=== PATIENT | female | born 2000 | race Caucasian/White ===

== ENCOUNTER 2019-03-06 21:14 | Emergency (ER) | payer MEDICAID ==
[~2019-03-06] VITALS: Ht 154.9 cm; Wt 60.6 kg
[2019-03-06] MEDS ORDERED: PRENTAB45 PO (21:33)
[2019-03-06] MEDS ORDERED: KEPP1TAB PO (21:33)
[2019-03-06] MEDS ORDERED: VITA-112 PO (21:33)
[2019-03-06] MEDS ORDERED: ACETAMINOPHEN 325 MG TAB PO ONE (22:45)
[2019-03-06] MEDS ORDERED: hydrOXYzine 25 MG TAB PO ONE (23:15)
[2019-03-07 00:33] VITALS: BP 96/50
--- NOTE | 2019-03-07 08:34 | REP ---
Clinical: Trauma. Technique: AP, lateral, bilateral oblique views of the right hand. Findings: No acute fracture or dislocation. Skeletal structures, joint spaces, and surrounding soft tissues appear normal. No subcutaneous emphysema or radiodense foreign body. Impression: No acute fracture or dislocation. Electronically Signed by Doug Willis MD 03/07/2019 08:25 A
== END 2019-03-07 00:55 | disposition home or self-care (01) ==
LOC: M ED 21:14 → EDBD 21:14 → M ED 03-07 00:55
DX: S60.221A Contusion of right hand, initial encounter (principal); S60.051A Contusion of right little finger without damage to nail, initial encounter; W22.8XXA Striking against or struck by other objects, initial encounter; Y92.480 Sidewalk as the place of occurrence of the external cause; Y93.89 Activity, other specified; Y99.9 Unspecified external cause status; Z3A.16 16 weeks gestation of pregnancy; Z79.899 Other long term (current) drug therapy

== ENCOUNTER 2019-03-07 04:49 | Inpatient (IN) | payer MEDICAID ==
[~2019-03-07] VITALS: Ht 154.9 cm; Wt 59.0 kg
[~2019-03-07 04:49] MED LIST: KEPP1TAB PO; PRENTAB45 PO; VITA-112 PO
[2019-03-07 07:46] LABS: HEMATOCRIT 31.3 % (36.0-47.0); HEMOGLOBIN 10.4 g/dl (12.0-15.5); MEAN CORPUSCULAR HEMOGLOBIN 29.1 pg (27.0-33.0); MEAN CORPUSCULAR HGB CONC 33.2 g/dl (32.0-36.5); MEAN CORPUSCULAR VOLUME 87.4 fl (80.0-96.0); PLATELET COUNT, AUTOMATED 184 10^3/uL (150-450); RED BLOOD COUNT 3.58 10^6/uL (4.00-5.40); WHITE BLOOD COUNT 7.8 10^3/uL (4.0-10.0)
[2019-03-07 08:08] LABS: HCG, SERUM QUALITATIVE POSITIVE (NEGATIVE)
[2019-03-07 08:18] LABS: ACETAMINOPHEN LEVEL 2.1 UG/ML (10.0-30.0); ALBUMIN 2.8 GM/DL (3.2-5.2); ALT/SGPT 30 U/L (12-78); BILIRUBIN,DIRECT < 0.1 MG/DL (0.0-0.2); BILIRUBIN,TOTAL 0.2 MG/DL (0.2-1.0); BLOOD UREA NITROGEN 8 MG/DL (7-18); CALCIUM LEVEL 7.9 MG/DL (8.5-10.1); CARBON DIOXIDE LEVEL 27 MEQ/L (21-32); CHLORIDE LEVEL 108 MEQ/L (98-107); CREATININE FOR GFR 0.49 MG/DL (0.55-1.30); ETHYL ALCOHOL (ETHANOL) < 0.003 % (0.000-0.010); GLOMERULAR FILTRATION RATE > 60.0 (>60); GLUCOSE, FASTING 85 MG/DL (70-100); SALICYLATE LEVEL < 1.7 MG/DL (5.0-30.0); SODIUM LEVEL 141 MEQ/L (136-145); TOTAL PROTEIN 5.8 GM/DL (6.4-8.2)
[2019-03-07 10:22] LABS: AMPHETAMINES LEVEL URINE NEGATIVE (NEGATIVE); BARBITURATES URINE NEGATIVE (NEGATIVE); BENZODIAZEPINES URINE NEGATIVE (NEGATIVE); CANNABINOIDS URINE NEGATIVE (NEGATIVE); COCAINE METABOLITE URINE NEGATIVE (NEGATIVE); METHADONE URINE NEGATIVE (NEGATIVE); OPIATES URINE NEGATIVE (NEGATIVE); PHENCYCLIDINE URINE NEGATIVE (NEGATIVE)
[2019-03-07] MEDS ORDERED: MAALOX 30 ML SUSP *UDC PO PRN (13:15)
[2019-03-07] MEDS ORDERED: ACETAMINOPHEN TAB 650MG DOSE (2X325MG) PO PRN (13:15)
[2019-03-07] MEDS ORDERED: MOM 30ML SUSPENSION UDC PO PRN (13:15)
[2019-03-07] MEDS ORDERED: traZODone 50 MG TAB PO PRN (13:15)
--- NOTE | 2019-03-07 14:27 | CR.PDOC ---
General Date of Consultation: Mar 07, 2019 Referring Provider: TEZ ROBERSON DO Primary Care Physician: TEZ ROBERSON DO Attending Physician: TEZ ROBERSON DO Consultation REASON FOR CONSULTATION/CHIEF COMPLAINT: Medical evaluation and medical H&P. HISTORY OF PRESENT ILLNESS: [19 years old female who is 16 weeks , recently moved from [facility] with her boyfriend had recently been seen in the ED and offered placement in a jail was then refused. She came back with chief complaints of suicidal ideation and superficial laceration to left hand Sera is being admitted to [facility] for constant observation secondary to suicidal ideation. Patient denies any medical complaints. ALLERGIES: Please see below. HOME MEDICATIONS: Please see below. PAST MEDICAL HISTORY: 1. 16 weeks . No other past medical history. PAST SURGICAL HISTORY: 1. None FAMILY HISTORY: History of psychiatric problems in the family Father: alcoholism Mother: hx of heart diseas Siblings: Children: Hereditary Diseases: Unexpected deaths due to medical reasons: SOCIAL HISTORY: Marital status and/or living arrangements: Lives with boyfriend and she is homeless Children: Employment: Tobacco use: ETOH: Denies Illicit drug use: Denies IV drug use: Denies Other relevant social factors: Recently moved from [place] with her boyfriend REVIEW OF SYSTEMS: CONSTITUTIONAL: No fever, weight loss. HEENT: No headache. eyes lacrimation or nose congestion-. CARDIOVASCULAR: Chest pain, palpitation. RESPIRATORY: For shortness of breath. GENITOURINARY: No urinary. MUSCULOSKELETAL: No muscle aches. GASTROINTESTINAL:. No nausea, vomiting or diarrhea. SKIN:. No rash. NEUROLOGICAL:. No weakness or gait disturbance. PSYCHIATRIC:, Suicidal. ENDOCRINE:, No diabetes. HEMATOLOGIC/LYMPHATIC:, No swelling. ALLERGIC/IMMUNOLOGIC: . PHYSICAL EXAMINATION: VITAL SIGNS: Please see below. GENERAL APPEARANCE: Fair, in no apparent distress. HEENT: . Pupils are equal, and reactive to light and accommodation RESPIRATORY:. Clear to A&P. CARDIOVASCULAR: S1, S2, regular, no murmur or thrill. ABDOMEN:. Soft, nontender, bowel sounds present. EXTREMITIES:. No clubbing, cyanosis, edema, no clubbing. NEUROLOGICAL:. No weakness. No sensory or motor deficit. PSYCHIATRIC: Suicidal. LABORATORY DATA: Please see below. ASSESSMENT/PLAN: 1. Suicidal ideations: Patient will be admitted to [facility], for the medications and assessment as per psychiatry. Patient needs constant observation. 2. 16 weeks gestation: We'll continue patient's vitamins,possibly needs visit with TELECOMMUNICATION TOWER TECHNICIAN heart monitoring as per TELECOMMUNICATION TOWER TECHNICIAN Please call if there is any medical question arises. Vital Signs/I&O Vital Signs Date Time Temp Pulse Resp B/P (MAP) Pulse Ox O2 Delivery O2 Flow Rate FiO2 03/07/19 04:58 98.6 78 22 130/74 (92) 99 Room Air Laboratory Data Labs 24H Laboratory Tests 2 03/07/19 07:20: Nucleated Red Blood Cells % (auto) 0.0, Anion Gap 6L, Glomerular Filtration Rate > 60.0, Calcium Level 7.9L, Aspartate Amino Transf (AST/SGOT) 25, Alanine Aminotransferase (ALT/SGPT) 30, Alkaline Phosphatase 58, Total Bilirubin 0.2, Direct Bilirubin < 0.1, Total Protein 5.8L, Albumin 2.8L, Albumin/Globulin Ratio 0.93L, Thyroid Stimulating Hormone (TSH) 1.330, Human Chorionic Gonadotropin, Qual POSITIVEA, Salicylates Level < 1.7L, Acetaminophen Level 2.1L, Ethyl Alcohol Level < 0.003 03/07/19 09:40: Urine Amphetamines Screen NEGATIVE, Urine Benzodiazepines Screen NEGATIVE, Urine Opiates Screen NEGATIVE, Urine Methadone Screen NEGATIVE, Urine Barbiturates Screen NEGATIVE, Urine Phencyclidine Screen NEGATIVE, Urine Cocaine Metabolite Screen NEGATIVE, Urine Cannabinoids Screen NEGATIVE CBC/BMP Laboratory Tests 03/07/19 07:20 Red Blood Count 3.58 L, Mean Corpuscular Volume 87.4, Mean Corpuscular Hemoglobin 29.1, Mean Corpuscular Hemoglobin Concent 33.2, Red Cell Distribution Width 13.1 Allergies Coded Allergies: No Known Allergies (Unverified , 03/06/19) Home Medications Scheduled Cholecalciferol (Vitamin D-1000) 1,000 Unit Tab, 2,000 UNIT PO DAILY, (Reported) Levetiracetam (Keppra) 500 Mg Tab, 500 MG PO BID, (Reported) Multivitamins/ ( One Daily 27-0.8 mg) 1 Tab Tab, 1 TAB PO DAILY, (Reported) JAVID BLOCK MD Mar 07, 2019 14:27
[2019-03-07 15:43] VITALS: BP 107/68
[2019-03-07] MEDS: PRENATAL VITAMINS CHEWABLE TABLET PO SCH (17:36)
[2019-03-08 07:07] VITALS: BP 116/62
[2019-03-08] MEDS: PRENATAL VITAMINS CHEWABLE TABLET PO SCH (08:11)
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
--- NOTE | 2019-03-08 14:30 | REP ---
Clinical: Anatomical evaluation. Comparison: None . Findings: Examination demonstrates a single live intrauterine in variable presentation. motion is identified by technologist. Placenta is noted posterior and grade grade 1 without evidence for placenta previa or abruption. Amniotic fluid volume is normal. Cervix measures 3.4 cm in length and appears closed. No evidence for nuchal cord. Gestational age by LMP 16 weeks 5 days with SCARLET 08/18/2019 . Gestational age by current measurements 16 weeks 4 days with SCARLET 08/19/2019 . FHR equals 153 beats per minute. BPD 3.6 cm 19 weeks 0 days HC 13.2 cm 16 weeks 5 days AC 11.1 cm 17 weeks 0 days FL 2.2 cm 16 weeks 3 days HL 2.1 cm 16 weeks 1 day HC/AC ratio 1.19 Estimated weight 166 grams ( 45th percentile). Anatomical assessment demonstrates normal structures including cranium, choroid plexus, cavum, cerebellum/posterior fossa, facial features, lungs, diaphragm, stomach, cord insertion/three-vessel cord, kidneys/bladder, spine, and extremities. Impression: Single live intrauterine in variable presentation demonstrating appropriate interval growth. Limited evaluation of the heart/ventricular outflow tracts noted. Remainder of the anatomical assessment is complete and normal. Electronically Signed by Doug Willis MD 03/08/2019 02:22 P
[2019-03-08 18:00] VITALS: BP 130/74
[2019-03-09 06:34] VITALS: BP 108/54
[2019-03-09] MEDS: PRENATAL VITAMINS CHEWABLE TABLET PO SCH (06:41)
[2019-03-09] MEDS ORDERED: MULTIVITAMINS/MINERALS THERAP 1 TAB PO ONE (11:30)
[2019-03-09] MEDS ORDERED: PRENCHW PO (11:33)
[2019-03-10] MEDS ORDERED: PRENATAL VITAMINS CHEWABLE TABLET PO SCH (09:00)
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
== END 2019-03-09 15:17 | disposition home or self-care (01) | DRG 566 ==
LOC: M ED 04:49 → M ED INP 13:06 → M PSY 14:29
PROVIDERS: ADMIT Psychiatry & Neurology Psychiatry; ATTEND Psychiatry & Neurology Psychiatry
DX: O99.342 Other mental disorders complicating pregnancy, second trimester (principal); F31.9 Bipolar disorder, unspecified; F78 Other intellectual disabilities; F43.10 Post-traumatic stress disorder, unspecified; F90.9 Attention-deficit hyperactivity disorder, unspecified type; O99.352 Diseases of the nervous system complicating pregnancy, second trimester; G43.909 Migraine, unspecified, not intractable, without status migrainosus; Z3A.16 16 weeks gestation of pregnancy; Z81.3 Family history of other psychoactive substance abuse and dependence; Z81.1 Family history of alcohol abuse and dependence; Z59.0 Homelessness; Z62.810 Personal history of physical and sexual abuse in childhood

== ENCOUNTER 2019-03-09 19:23 | Emergency (ER) | payer MEDICAID ==
[~2019-03-09] VITALS: Ht 154.9 cm; Wt 59.1 kg
[~2019-03-09 19:23] MED LIST changes: +PRENCHW PO
[2019-03-09 23:26] VITALS: BP 134/86
== END 2019-03-09 23:37 | disposition home or self-care (01) ==
LOC: M ED 19:23
DX: O99.342 Other mental disorders complicating pregnancy, second trimester (principal); F32.9 Major depressive disorder, single episode, unspecified; Z59.0 Homelessness; O99.352 Diseases of the nervous system complicating pregnancy, second trimester; G40.909 Epilepsy, unspecified, not intractable, without status epilepticus; Z79.899 Other long term (current) drug therapy; Z3A.16 16 weeks gestation of pregnancy